=== PATIENT | female | born 1925 | race Caucasian/White ===

== ENCOUNTER 2017-02-12 15:05 | Emergency (ER) | payer OTHER ==
[~2017-02-12] VITALS: Ht 165.1 cm; Wt 61.7 kg
[2017-02-12] MEDS ORDERED: GLUCOTROL10 MG (16:25)
[2017-02-12] MEDS ORDERED: NORVASC5 MG (16:25)
[2017-02-12] MEDS ORDERED: SYNTHROID88 MCG (16:26)
[2017-02-12] MEDS ORDERED: SINGULAIR10 MG (16:26)
[2017-02-12] MEDS ORDERED: VITAMIN D2000 UNIT (16:26)
[2017-02-12] MEDS ORDERED: PROVENTIL HFA6.7 GM (16:26)
[2017-02-12] MEDS ORDERED: ISOSORBIDE DINIT5 MG PO (19:04)
[2017-02-12] MEDS ORDERED: NIFEDIPINE10 MG PO (19:04)
== END 2017-02-12 19:08 | disposition home or self-care (01) ==
LOC: ER 15:05
DX: R13.19 Other dysphagia (principal); K22.0 Achalasia of cardia